=== PATIENT | male | born 1955 ===

== ENCOUNTER 2017-07-15 09:24 | Outpatient (CLI) | payer BC, OTHER ==
[2014-02-26 09:57] VITALS: O2SAT 86
== END 2017-07-15 09:25 | disposition home or self-care (01) ==
LOC: CONVCARE 09:24
PROVIDERS: ATTEND Orthopaedic Surgery
DX: M75.41 Impingement syndrome of right shoulder (principal); M75.42 Impingement syndrome of left shoulder
CPT/HCPCS: 73030

== ENCOUNTER 2018-07-24 08:03 | Day surgery (SDC) | payer BC, OTHER ==
[2018-07-24 09:56] VITALS: PULSE 64
[2018-07-24 10:15] VITALS: BP 120/76; RESP 18; TEMP 97.4; O2SAT 97
== END 2018-07-24 10:35 | disposition home or self-care (01) ==
LOC: SURG 08:03
PROVIDERS: ATTEND Surgery
DX: Z12.11 Encounter for screening for malignant neoplasm of colon (principal); Z86.010 Personal history of colon polyps; K57.32 Diverticulitis of large intestine without perforation or abscess without bleeding; D12.2 Benign neoplasm of ascending colon; K63.5 Polyp of colon
CPT/HCPCS: 99001; J2704